=== PATIENT | female | born 1955 | race Caucasian/White ===

== ENCOUNTER 2020-10-25 10:51 | Day surgery (SDC) | payer OTHER ==
[~2020-10-25] VITALS: Ht 165.1 cm; Wt 61.0 kg
[2020-10-25] MEDS ORDERED: FENTANYL PF 100 MCG/2ML ONE (10:57)
[2020-10-25] MEDS ORDERED: PROPOFOL 10 MG/ML, 20ML ONE (10:59)
[2020-10-25] MEDS ORDERED: SUCCINYLCHOLINE 20 MG/ML, 10ML ONE (10:59)
[2020-10-25] MEDS ORDERED: MIDAZOLAM 1 MG/ML, 2ML ONE (10:59)
[2020-10-25] MEDS ORDERED: DEXAMETHASONE 4 MG/ML, 1ML ONE ×2 (11:00→11:01)
[2020-10-25] MEDS ORDERED: ONDANSETRON 2MG/ML, 2ML ONE (11:01)
[2020-10-25] MEDS ORDERED: CEFAZOLIN 1,000 MG ONE ×2 (11:01)
[2020-10-25] MEDS ORDERED: CHLORHEXIDINE 15 ML UDC MM ONE (11:41)
[2020-10-25 11:42] VITALS: BP 158/86
[2020-10-25] MEDS ORDERED: MONT10TA17 PO (11:52)
[2020-10-25] MEDS ORDERED: BECL10.62 INH (11:52)
[2020-10-25] MEDS ORDERED: ASPI-963 PO (11:52)
[2020-10-25] MEDS ORDERED: CYCL10TA2 PO (11:52)
[2020-10-25] MEDS ORDERED: MELO15TA24 PO (11:52)
[2020-10-25] MEDS ORDERED: CHLORHEXIDINE 15 ML UDC ONE (11:58)
[2020-10-25] MEDS ORDERED: LACTATED RINGERS 1,000 ML IV SCH (12:00)
[2020-10-25 12:10] LABS: BASOPHILS % (AUTO) 1 % (0-1); EOSINOPHILS % (AUTO) 3 % (1-7); LYMPHOCYTES % (AUTO) 30 % (22-44); MD NO; MEAN CORPUSCULAR HEMOGLOBIN 30.3 pg (27.0-34.8); MEAN CORPUSCULAR HGB CONC 34.1 g/dL (32.4-35.8); MEAN PLATELET VOLUME 9.1 fL (7.4-10.4); MONOCYTES % (AUTO) 6 % (2-9); NEUTROPHILS % (AUTO) 60 % (42-75); PLATELET COUNT 262 x10^3/uL (130-400); RED BLOOD COUNT 4.69 x10^6/uL (3.82-5.3); RED CELL DISTRIBUTION WIDTH 12.9 % (9.6-15.2)
[2020-10-25] MEDS ORDERED: EPINEPHRINE TOPICAL SOLN 1 MG/ML, 30ML ONE (12:38)
[2020-10-25] MEDS ORDERED: LIDOCAINE/PF 1%, 30ML ONE (12:38)
[2020-10-25] MEDS ORDERED: BACITRACIN OINT 500U/GM, 15 GM ONE (12:38)
[2020-10-25] MEDS ORDERED: FLUORESCEIN SODIUM 500 MG/5 ML ONE (12:39)
[2020-10-25] MEDS ORDERED: EPINEPHRINE 1 MG/ML, 1ML ONE (12:39)
[2020-10-25] MEDS ORDERED: OXYMETAZOLINE NASAL SPRAY 0.05%,30ML ONE (12:39)
[2020-10-25] MEDS ORDERED: ACETAMINOPHEN 650 MG/20.3 ML UDC ONE (13:55)
[2020-10-25] MEDS ORDERED: OXYcodone 5 MG/5 ML ORAL.SOL UDC PO PRN (14:00)
[2020-10-25] MEDS ORDERED: FENTANYL PF 100 MCG/2ML IV PRN (14:00)
[2020-10-25] MEDS ORDERED: ACETAMINOPHEN 325 MG TABLET PO PRN (14:00)
[2020-10-25] MEDS ORDERED: PROMETHAZINE 25 MG/ML, 1ML IVPush PRN (14:00)
[2020-10-25] MEDS ORDERED: ONDANSETRON 2MG/ML, 2ML IVPush PRN (14:00)
== END 2020-10-25 15:05 | disposition home or self-care (01) ==
LOC: OUT 10:51
PROVIDERS: ATTEND Otolaryngology
DX: R04.0 Epistaxis (principal); J45.909 Unspecified asthma, uncomplicated; Z20.822 Contact with and (suspected) exposure to COVID-19; Z79.899 Other long term (current) drug therapy; Z88.0 Allergy status to penicillin; Z88.5 Allergy status to narcotic agent; Z88.8 Allergy status to other drugs, medicaments and biological substances
CPT/HCPCS: 31238; 36415; 85025; 87635; 93005; J0171; J0330; J0690; J1100; J2250; J2405; J2704; J3010; J7120